=== PATIENT | male | born 1970 | race Caucasian/White ===

== ENCOUNTER 2019-12-14 13:36 | Emergency (ER) | payer OTHER ==
[~2019-12-14] VITALS: Ht 175.3 cm; Wt 87.1 kg
[2019-12-14] MEDS ORDERED: SERTRALINE HCL100 MG PO (13:50)
[2019-12-14] MEDS ORDERED: ZYRTEC10 M5 PO (13:51)
[2019-12-14] MEDS ORDERED: COZAAR 25 MG TA25 M1 PO (13:51)
[2019-12-14] MEDS ORDERED: KEFLEX500 M1 PO (15:37)
[2019-12-14] MEDS ORDERED: NORCO 5-325 TA1 EAC2 PO (15:37)
[2019-12-14 15:48] VITALS: BP 138/89
== END 2019-12-14 15:49 | disposition home or self-care (01) ==
LOC: M.ERS 13:36
DX: S61.312A Laceration without foreign body of right middle finger with damage to nail, initial encounter (principal); I10 Essential (primary) hypertension; E78.00 Pure hypercholesterolemia, unspecified; Z90.49 Acquired absence of other specified parts of digestive tract; W26.8XXA Contact with other sharp object(s), not elsewhere classified, initial encounter; Y93.89 Activity, other specified; Y92.89 Other specified places as the place of occurrence of the external cause; Y99.8 Other external cause status